=== PATIENT | female | born 1960 | race Caucasian/White ===

== ENCOUNTER 2017-01-14 16:06 | Emergency (ER) | payer OTHER ==
[~2017-01-14] VITALS: Ht 157.5 cm; Wt 75.0 kg
[2017-01-14 16:08] VITALS: BP 156/86; PULSE 119; RESP 20; O2SAT 99
--- NOTE | 2017-01-14 16:34 | ED.REPORT ---
HPI-Abd Pain F 40 and Over Date of Service Jan 14, 2017 ED Provider: Dr. Fitzpatrick 56 y/o female with a hx of liver cirrhosis, DM and alcohol abuse (in recovery) presents to the ED complaining of ascites and abdominal pain, onset a week ago. Associated sx include chills (she states she is always cold), lower extremity edema and pain. She denies fever and confusion. The pt has never experienced similar sx before. Nursing Notes Stated Complaint: ABDOMINAL PAIN Chief Complaint: Female Abdominal Pain Nursing Notes Reviewed: Yes Allergies: Coded Allergies: No Known Allergies (Unverified , 01/14/17) Scheduled Furosemide (Lasix) 20 Mg Tablet 20 MG PO DAILY Lactulose (Lactulose) 10 Gm/15 Ml Solution 10 GM PO TID adjust to having 3 BMs daily Propranolol HCl (Propranolol HCl) 10 Mg Tablet 10 MG PO TID Spironolactone (Aldactone) 25 Mg Tablet 25 MG PO DAILY General Time Seen by MD: 16:34 Chief Complaint Abdominal pain (and swelling) Hx Obtained From: Patient Arrived By: Walk-in Sudden in Onset?: No Onset Occurred: 1 week ago Symptom Duration: Since onset Progression since Onset: Unchanged Location: : Diffuse Quality: Painful Radiation: : Does not radiate Severity: Current: Moderate Severity: Maximum: Moderate Recent Healthcare: No recent doctor visit Similar Sx Previous: No Past Medical History Past Medical History alcohol related liver cirrhosis Reports: Diabetes mellitus Past Surgical History Throat surgery Reports: Appendectomy Smoking History Current Every Day Smoker Social History Alcohol Use: In recovery Drug Use: Denies drug use Other Social History: Good social support, Lives with children (with son) Ambulatory Status Independent Review of Systems Reports: Abdominal swelling Constitutional: Reports: Chills, Denies: Fever Cardiovascular: Reports: Edema GI: Reports: Abdominal pain Musculoskeletal: Reports: Extremity pain (leg pain) Complete sys rev & neg: except as marked. Neurologic: Denies: Confusion Physical Exam Vital Signs Vital Signs (First) Date Time Temp Pulse Resp B/P Pulse Ox O2 Delivery O2 Flow Rate FiO2 01/14/17 16:08 36.2 119 20 156/86 99 Room Air Initial VS: Reviewed Head / Eyes: Atraumatic, Normocephalic Neck: Non-tender, Full range of motion Extremities: Vascular intact, Neuro intact, No tenderness Skin: Warm, Dry, No cyanosis General/Constitutional: Awake, Alert, Cooperative Appearance / Presentation: Positive: Cachectic, Frail Thin Not jaundiced Respiratory / Chest: Atraumatic, Breath sounds NL, No respiratory distress Cardiovascular: Regular rhythm, Heart sounds NL, No gallop, No murmurs, No rubs Heart Rate / Rhythm: Positive: Tachycardia Billateral lower extremity edema. Abdomen: Atraumatic, Soft Tense ascites Neurologic: Oriented X3, Speech NL, No motor deficits, No sensory deficits No asterixis Interpretation & Diagnostics Lab Results Interpretation Result Diagram: 01/14/17 1645 01/14/17 1645 Test 01/14/17 16:45 01/14/17 18:44 01/14/17 19:20 01/14/17 19:25 White Blood Count 2.5th/mm3 (3.8-10.1) Red Blood Count 2.97mil/mm3 (3.90-5.20) Hemoglobin 8.5g/dL (12.0-15.6) Hematocrit 26.6% (35.0-46.0) Mean Corpuscular Volume 89.6fL (81-100) Mean Corpuscular Hemoglobin 28.6pg (27.0-35.0) Mean Corpuscular Hemoglobin Concent 32.0% (32.0-37.0) Red Cell Distribution Width 17.5% (12.3-15.4) Platelet Count 84bil/L (150-400) Neutrophils (%) (Auto) 74.4% (40-74) Lymphocytes (%) (Auto) 12.2% (14-46) Monocytes (%) (Auto) 11.4% (4-12) Eosinophils (%) (Auto) 1.6% (0-5) Basophils (%) (Auto) 0.4% (0-3) Prothrombin Time 12.7sec (8.1-12.5) Prothromb Time International Ratio 1.18ratio Sodium Level 135mEq/L (134-144) Potassium Level 3.9mEq/L (3.5-5.2) Chloride Level 101mEq/L (97-108) Carbon Dioxide Level 21mmol/L (18-29) Blood Urea Nitrogen 19mg/dL (6-24) Creatinine 0.79mg/dL (0.57-1.00) Estimat Glomerular Filtration Rate 108mL/min (>59) Glucose Level 150mg/dL (60-99) Calcium Level 8.5mg/dL (8.5-10.1) Magnesium Level 1.5mg/dL (1.6-2.6) Total Bilirubin 1.2mg/dL (0.0-1.2) Aspartate Amino Transf (AST/SGOT) 31U/L (0-50) Alanine Aminotransferase (ALT/SGPT) 15U/L (0-32) Alkaline Phosphatase 247U/L (25-150) Total Protein 7.5g/dL (6.4-8.4) Albumin 2.4g/dL (3.4-5.0) Lipase 36U/L (13-60) Urine Color Dark yellow (YELLOW) Urine Appearance Hazy (CLEAR,HAZY) Urine pH 5.5 (5.0-8.0) Urine Specific [place] 1.020 (1.003-1.035) Urine Protein Negativemg/dL (NEG,TRACE) Urine Glucose (UA) Negativemg/dL (NEGATIVE) Urine Ketones Negativemg/dL (NEGATIVE) Urine Occult Blood Trace (NEGATIVE) Urine Nitrite Positive (NEGATIVE) Urine Bilirubin Negative (NEGATIVE) Urine Urobilinogen Normalmg/dL (NORMAL) Urine Leukocyte Esterase Negative (NEGATIVE) Urine RBC 0-2/hpf (0-2) Urine WBC 0-5/hpf (0-5) Urine Epithelial Cells Few/hpf (NONE-MOD) Urine Crystals None seen (NONE SEEN) Urine Bacteria Many/hpf (NONE-FEW) Urine Hyaline Casts None/lpf (NONE) Urine Granular Casts None seen (NONE SEEN) Urine Waxy Casts None seen (NONE SEEN) Urine Red Blood Cell Casts None seen (NONE SEEN) Urine White Blood Cell Casts None seen (NONE SEEN) Urine Mucus None seen (None Seen) Urine Trichomonas None seen (NONE SEEN) Urine Yeast None (NONE SEEN) Urinalysis Comment None Urine Culture Reflexed Indicated Ammonia 71ug/dL (18-53) Body Fluid Source Peritoneal fluid Body Fluid Color Yellow (Clear) Body Fluid Appearance Clear Body Fluid WBC 26/mm3 Body Fluid RBC 269/mm3 Body Fluid Polynuclear WBCs 1% Body Fluid Lymphocytes 8% Body Fluid Monocytes 31% Body Fluid Eosinophils 0% Body Fluid Basophils 0% Peritoneal Fluid Glucose 179mg/dL CT Abd / Pelvis Interpretation IMPRESSION: 1. Nodular heterogeneous liver consistent with cirrhosis with evidence of portal hypertension including gastroesophageal and splenic varices, large amount of ascites, recannulated paraumbilical vein, and splenomegaly. 2. Small nonspecific hypodense focus in the right hepatic dome. Given history of cirrhosis, recommend further evaluation with a liver protocol CT or MRI if clinically indicated. 3. Segmental wall thickening of the ascending colon likely representing portal colopathy. 4. Mild wall thickening of scattered loops of small bowel likely reactive secondary to ascites. 5. Small hiatal hernia. Dictated by: Indra Hinton M.D. on 01/14/2017 at 18:08 Approved by: Indra Hinton M.D. on 01/14/2017 at 18:13 Study type: Abdominal CT IV contrast Interpretation / Wet Read by: Interpret - Radiologist Procedures Procedure: US guided paracentesis Time: 19:04 Performed by: ED physician Consent: informed consent provided, consented by the patient, time-out performed , standard surgical scrubs, sterile drapes applied Catheter 8fr safety Catheter, 2cm below the umbilicus. Standard sterile technique. To sound used to identify an appropriate pocket of fluid. Total of 2100 mL of straw colored non-cloudy fluid was obtained 2 krissy were placed at the site sterile dressing applied Post procedure: no complications, condition improved, tolerated procedure well, patient stable Re-Eval/Medical Decision Med Decision/Clinical Course This is a cirrhosis patient who is new to the area and has been noncompliant after moving away from her primary care. She does have tense ascites and abdominal pain, and diagnostic and Therapeutic paracentesis was performed. It is not consistent with spontaneous bacterial peritonitis. She is feeling significantly better. She is not in hepatic encephalopathy. Her vital signs are stable. I do not suspect acute infection. We will start her on furosemide, Aldactone, propranolol, lactulose. Will plan to have her follow closely with both GI and primary care. Her son arrives at the bedside and this is explained in detail with him he also agrees to help coordinate her follow-up care. Return and follow-up precautions given. Re-Evaluation/Progress #1: Time of Eval: 18:46 Re-Evaluation/Progress Note: Rechekced pt. Informed the pt of the plan to perform paracentesis. She understands and agrees with the plan. All questions answered. Re-Evaluation/Progress #2: Time of Eval: 19:50 Patient Status: Condition improved Re-Evaluation/Progress Note: Rechecked pt. Fluid still draining. Pt feeling better. Re-Evaluation/Progress #3: Time of Eval: 20:20 Patient Status: Condition improved Re-Evaluation/Progress Note: Rechecked pt. 2100cc drained. When the catheter was pulled out, some ascites fluid ozzed from the site. Prepped and put 2 krissy in at the site to stop the oozing. Discussed the diagnosis and plan to discahrge the pt. She understands and agrees with the plan. All questions answered. Counseled Regarding: Diagnosis, Lab results, Need for follow-up, When/why to return to ED Discharge & Departure Primary Impression: Cirrhosis Additional Impression: Ascites Disposition: Home Discharge Condition All VS Reviewed: Yes Condition: Stable Patient Instructions: Ascites (ED) Additional Instructions: You have cirrhosis of the liver which is causing fluid buildup in your abdomen and legs. Take Lasix and Aldactone as well as lactulose and propranolol. This will help your symptoms. Call a primary care doctor and the commercial escrow officer in the morning for close follow-up appointments. 2 krissy were placed anterior abdomen at the site where your fluid was drained. These should be removed in 7 days. Return to the ER if you develop altered mental status, high fever, severe abdominal pain, or other concerns. Referrals: [facility] Carlos Mustafa MD Attestation Portions of this note were transcribed by Richar King. I, , personally performed the history, physical exam and medical decision-making;I reviewed and confirmed the accuracy of the information in the transcribed note. Signed by Helio Cardona. 01/14/17 21:17 copies to: [facility]; Carlos Mustafa MD, Timothy S DO Jan 14, 2017 16:34 Richar King Jan 14, 2017 16:41
[2017-01-14] MEDS ORDERED: 0.9% Sodium Chloride 1,000 ML IV ONE (16:38)
[2017-01-14] MEDS ORDERED: Ondansetron 2 mg/mL 2 mL Inj IVPUSH PRN (16:40)
[2017-01-14 17:00] LABS: BASOPHILS % (AUTO) 0.4 % (0-3); Mean Corpuscular Volume 89.6 fL (81-100); Platelet Count 84 bil/L (150-400)
[2017-01-14 17:09] LABS: EOSINOPHILS % (AUTO) 1.6 % (0-5); MONOCYTES % (AUTO) 11.4 % (4-12); Mean Corpuscular Hemoglobin 28.6 pg (27.0-35.0); NEUTROPHILS % (AUTO) 74.4 % (40-74)
[2017-01-14] MEDS: HYDROmorphone 0.5 mg/0.5 mL iSecure Syringe IVPUSH PRN ×3 (17:13→19:09)
[2017-01-14 17:14] LABS: INR 1.18 ratio
[2017-01-14 17:20] LABS: Magnesium 1.5 mg/dL (1.6-2.6)
--- NOTE | 2017-01-14 18:15 | DRSVH ---
PROCEDURE: CT ABDOMEN AND PELVIS WITH CONTRAST ([id number]) INDICATIONS: ABD PAIN, ASCITES TECHNIQUE: After the administration of oral and intravenous contrast, 5 mm thick sections acquired from the diap hragms to the symphysis. 5 mm thick coronal and sagittal reformats were performed. For radiation do se reduction, the following was used: automated exposure control, adjustment of mA and/or kV accordi ng to patient size. COMPARISON: None. FINDINGS: Image quality: Excellent. ABDOMEN: Lung bases: There is mild dependent atelectasis. Heart size is normal. There is a small hiatal sukhjinder ia. Concentric wall thickening is demonstrated in the distal esophagus with gastroesophageal varices . Solid organs: There is a heterogeneous liver with nodular contours consistent with cirrhosis. There is a small nonspecific hypodensity in the right hepatic lobe measuring 6 mm. The gallbladder demonst rates no calcified gallstones. There is slight gallbladder wall thickening which is nonspecific in t he context of liver disease and ascites. The spleen is enlarged measuring up to 14 cm. The pancreas demonstrates no focal lesions. No definite adrenal nodules, with evaluation slightly limited. Kidn eys demonstrate no hydronephrosis. Peritoneum and bowel: There is a large amount of ascites throughout the abdomen and pelvis. There is mild wall thickening of the small and large bowel which may be reactive secondary to ascites. In ad dition, there is also segmental wall thickening of the ascending colon likely reflecting portal colop athy. Nodes and vessels: No retroperitoneal or mesenteric adenopathy. Aorta and inferior vena cava are no rmal in caliber. There is a recannulated periumbilical vein as well as varices in the right lower qu adrant of the abdomen. There are numerous splenic varices. Miscellaneous: No ventral hernias. PELVIS: Genitourinary: Bladder wall thickness is normal. Miscellaneous: No inguinal hernias or adenopathy. Bones: No suspicious bony lesions. No vertebral body compression fractures. IMPRESSION: 1. Nodular heterogeneous liver consistent with cirrhosis with evidence of portal hypertension includ ing gastroesophageal and splenic varices, large amount of ascites, recannulated paraumbilical vein, a nd splenomegaly. 2. Small nonspecific hypodense focus in the right hepatic dome. Given history of cirrhosis, recomme nd further evaluation with a liver protocol CT or MRI if clinically indicated. 3. Segmental wall thickening of the ascending colon likely representing portal colopathy. 4. Mild wall thickening of scattered loops of small bowel likely reactive secondary to ascites. 5. Small hiatal hernia. Dictated by: Indra Hinton M.D. on 01/14/2017 at 18:08 Approved by: Indra Hinton M.D. on 01/14/2017 at 18:13
[2017-01-14 18:39] VITALS: BP 108/67; PULSE 95; RESP 14; O2SAT 100
[2017-01-14 19:02] LABS: APPEARANCE,URINE HAZY (CLEAR,HAZY); COLOR,URINE DARK YELLOW (YELLOW); OCCULT BLOOD,URINE TRACE (NEGATIVE); PH,URINE 5.5 (5.0-8.0)
[2017-01-14 19:03] LABS: UROBILINOGEN,URINE NORMAL (NORMAL)
[2017-01-14 20:21] LABS: BFWBC 26 /mm3; MONOCYTES,BODY FLUID 31 %
[2017-01-14 20:22] LABS: OTHER CELLS,BODY FLUID 60
[2017-01-14] MEDS ORDERED: Lactulose 10 Gm/15 mL 473 mL Solution PO ONE (20:35)
[2017-01-14 20:53] VITALS: BP 118/74; PULSE 94; RESP 18; O2SAT 99
[2017-01-14] MEDS ORDERED: SPIR25TA PO (21:07)
[2017-01-14] MEDS ORDERED: PROP10TA8 PO (21:07)
[2017-01-14] MEDS ORDERED: FURO-129 PO (21:07)
[2017-01-14] MEDS ORDERED: LACT10SO27 PO (21:07)
[2017-01-14] MEDS ORDERED: Lactulose 20 Gm/30 mL 30 mL Syrup PO ONE (21:15)
[2017-01-14 21:26] VITALS: BP 118/74; PULSE 94; RESP 18; O2SAT 99
== END 2017-01-14 21:25 | disposition home or self-care (01) ==
LOC: SED 16:06
DX: K74.60 Unspecified cirrhosis of liver (principal); R18.8 Other ascites; R10.9 Unspecified abdominal pain; R68.83 Chills (without fever); R60.0 Localized edema; M79.606 Pain in leg, unspecified; E11.9 Type 2 diabetes mellitus without complications; F17.200 Nicotine dependence, unspecified, uncomplicated; B96.20 Unspecified Escherichia coli [E. coli] as the cause of diseases classified elsewhere
CPT/HCPCS: 36415; 49083; 74177; 80053; 81000; 82042; 82140; 82945; 83690; 83735; 85025; 85610; 87070; 87075; 87086; 87088; 87186; 87205; 89051; 96374; 96375; 99285; J1170; J2405; J7030; Q9967

== ENCOUNTER 2017-01-22 08:21 | Emergency (ER) | payer OTHER ==
[~2017-01-22 08:21] MED LIST: FURO-129 PO; LACT10SO27 PO; PROP10TA8 PO; SPIR25TA PO
[2017-01-22 08:24] VITALS: BP 111/70; PULSE 92; RESP 18; O2SAT 96
--- NOTE | 2017-01-22 08:30 | ED.REPORT ---
HPI-General Illness Date of Service Jan 22, 2017 ED Provider: Nursing Notes Stated Complaint: STAPLE REMOVAL Chief Complaint: Wound Recheck/Suture Removal Allergies: Coded Allergies: No Known Allergies (Unverified , 01/14/17) Scheduled Furosemide (Lasix) 20 Mg Tablet 20 MG PO DAILY Lactulose (Lactulose) 10 Gm/15 Ml Solution 10 GM PO TID adjust to having 3 BMs daily Propranolol HCl (Propranolol HCl) 10 Mg Tablet 10 MG PO TID Spironolactone (Aldactone) 25 Mg Tablet 25 MG PO DAILY General Time Seen by MD: 08:29 Past Medical History Past Medical History alcohol related liver cirrhosis Reports: Diabetes mellitus Past Surgical History Throat surgery Reports: Appendectomy Smoking History Current Every Day Smoker Social History Alcohol Use: In recovery Drug Use: Denies drug use Other Social History: Good social support, Lives with children Ambulatory Status Independent Physical Exam Vital Signs Vital Signs Date Time Temp Pulse Resp B/P Pulse Ox O2 Delivery O2 Flow Rate FiO2 01/22/17 08:24 92 18 111/70 96 Room Air Discharge & Departure Referrals: NOPCP (PCP) Khurram Hernandez MD Jan 22, 2017 08:30
== END 2017-01-22 08:39 ==
LOC: SED 08:21
DX: Z48.02 Encounter for removal of sutures (principal)